=== PATIENT | male | born 1990 | race African-American/Black ===

== ENCOUNTER 2018-07-16 14:48 | Emergency (ER) | payer MEDICAID, MEDICARE, OTHER ==
[~2018-07-16] VITALS: Ht 170.2 cm; Wt 66.0 kg
[~2018-07-16 14:48] MED LIST: LEXAPRO; QUET200T
[2018-07-16] MEDS ORDERED: CEFTRIAXONE SODIUM 250 MG/VIAL IM ONE (21:00)
[2018-07-16] MEDS ORDERED: AZITHROMYCIN 500 MG TABLET PO ONE (21:00)
[2018-07-16 21:14] VITALS: BP 123/86
[2018-07-16 21:35] LABS: CLARITY URINE CLEAR (CLEAR); COLOR URINE YELLOW (YELLOW); KETONES URINE TRACE (NEGATIVE); LEUKOCYTE ESTERASE URINE 2+ (NEGATIVE); NITRITE URINE NEGATIVE (NEGATIVE); OCCULT BLOOD URINE NEGATIVE (NEGATIVE); PH URINE 7.5 (4.5-8.0); PROTEIN URINE NEGATIVE (NEGATIVE); SPECIFIC GRAVITY URINE 1.018 (1.005-1.030)
[2018-07-19 04:14] LABS: CHLAMYDIA TRACHOMATIS NAA Negative (Negative); NEISSERIA GONORRHOEAE NAA Positive (Negative)
== END 2018-07-16 21:33 | disposition home or self-care (01) ==
LOC: ER 14:48
DX: N34.2 Other urethritis (principal); F41.9 Anxiety disorder, unspecified; F31.9 Bipolar disorder, unspecified; F12.10 Cannabis abuse, uncomplicated
CPT/HCPCS: 81003; 87491; 87591; 96372; 99284; J0696